=== PATIENT | male | born 1990 | race Caucasian/White ===

== ENCOUNTER 2016-10-24 09:22 | Inpatient (IN) | payer BC, OTHER ==
[~2016-10-24] VITALS: Ht 182.9 cm; Wt 90.7 kg
[2016-10-24] MEDS ORDERED: LORAZEPAM 2 MG/1 ML VIAL IM PRN (19:15)
[2016-10-24] MEDS ORDERED: MAGNESIUM HYDROXIDE 30 ML LIQUID UDC PO PRN (19:15)
[2016-10-24] MEDS ORDERED: MAG HYDROX/AL HYDROX/SIMETH 30 ML LIQUID UDC PO PRN (19:15)
[2016-10-24] MEDS ORDERED: ACETAMINOPHEN 325 MG TABLET PO PRN (19:15)
[2016-10-24] MEDS ORDERED: ONDANSETRON 4 MG/2 ML VIAL IM PRN (19:15)
[2016-10-24] MEDS ORDERED: BUPRENORPHINE HCL 2 MG TAB.SUBL SL PRN (19:15)
[2016-10-24] MEDS ORDERED: MIRALAX 17 GM POWD.PACK PO PRN (19:15)
[2016-10-24] MEDS ORDERED: LOPERAMIDE HCL 2 MG CAPSULE PO PRN ×2 (19:15)
[2016-10-24] MEDS ORDERED: ONDANSETRON ODT 4 MG TAB.RAPDIS SL PRN (19:15)
[2016-10-24] MEDS ORDERED: LORAZEPAM 1 MG TABLET PO PRN ×2 (19:15)
[2016-10-24] MEDS ORDERED: DICYCLOMINE HCL 20 MG TABLET PO PRN (19:15)
[2016-10-24 19:30] LABS: BASOPHILS # (AUTO) 0.2 K/uL (0.0-8.0); BASOPHILS % (AUTO) 3.1 % (0.0-2.0); EOSINOPHILS # (AUTO) 0.2 K/uL (0.0-0.7); EOSINOPHILS % (AUTO) 2.2 % (0.0-7.0); HEMATOCRIT 48.4 % (40-50); HEMOGLOBIN 16.1 G/DL (14.0-18.0); LYMPHOCYTES # (AUTO) 2.1 K/UL (0.8-4.8); LYMPHOCYTES % (AUTO) 25.8 % (20.5-51.5); MEAN CORPUSCULAR HEMOGLOBIN 30.5 UUG (27.0-31.0); MEAN CORPUSCULAR HGB CONC 33 g/dL (32.0-37.0); MEAN CORPUSCULAR VOLUME 91.7 FL (82.0-92.0); MONOCYTES # (AUTO) 0.6 K/UL (0.1-1.30); MONOCYTES % (AUTO) 7.9 % (0.0-11.0); NEUTROPHILS # (AUTO) 4.9 K/UL (1.8-8.9); PLATELET COUNT (AUTO) 186 K/UL (150-450); RED BLOOD CELL COUNT(AUTO) 5.28 MIL/UL (4.7-6.1)
[2016-10-24 19:41] LABS: ALANINE AMINOTRANSFERASE 17 U/L (16-63); ALKALINE PHOSPHATASE 71 U/L (50-136); ASPARTATE AMINOTRANSFERASE 16 U/L (15-37); BILIRUBIN,TOTAL 0.4 mg/dL (0.2-1.0); CARBON DIOXIDE 31 mmol/L (21-32); CHLORIDE 105 mmol/L (98-107); CREATININE 1.3 mg/dL (0.6-1.3); GLUCOSE 79 mg/dL (74-106); MAGNESIUM 1.9 mg/dL (1.8-2.4); POTASSIUM 3.9 mmol/L (3.5-5.1); TOTAL PROTEIN, SERUM 7.9 g/dL (6.4-8.2); UREA NITROGEN, BLOOD 9 mg/dL (7-18)
[2016-10-24 19:42] LABS: *AMPHETAMINE, URINE NEGATIVE (NEGATIVE); *BARBITURATE, URINE NEGATIVE (NEGATIVE); *CANNABINOID, URINE POSITIVE (NEGATIVE); *COCCAINE, URINE POSITIVE (NEGATIVE); *OPIATE, URINE NEGATIVE (NEGATIVE); *PHENCYCLIDINE SCREEN,URINE NEGATIVE (NEGATIVE)
[2016-10-24 19:52] LABS: ETHANOL < 3 MG/DL (0-0)
[2016-10-24 20:00] VITALS: BP 145/90
--- NOTE | 2016-10-24 20:00 | NUR ---
PRE-ADMISSION NOTE: Patient assessed in intake office at 2000 on 10/24/2016. Patient is ambulatory with steady gate, stable, AOx4, speech is soft and clear. Patient states that he is here, in the [facility] "first time for Safety Detox from Xanax, ETOH, MJ and Cocaine". CI=684/90 , HR=80, SpO2=98% with RA, RR=16, unlabored and even, TEMP=98.1. Patient denies Seizures Hx r/t withdrawal from substances. CIWA=3, COWS=3. The patient presented with anxiety,. Patient denies SI/HI. Respirations are even and unlabored. Patient denies SOB and chest pain. Last BM was yesterday. Patient verbalized understanding and agreement. Patient also instructed on policy regarding destruction of any controlled substances/prescriptions brought to facility, and handling of all medications. Patient verbalized understanding and agreement. Will complete admission assessment when patient is brought up to unit.
[2016-10-24] MEDS ORDERED: THIAMINE HCL 200 MG/2 ML VIAL IM ONE (20:30)
--- NOTE | 2016-10-24 21:00 | NUR ---
ADMISSION NOTE : Pt. is 25 year old male admitted for COCAINE, ETOH, XANAX, MARIJUANA Dependence. Pt reported NKA for food or medications, Full Code, Regular Diet, denies history of seizures. Pt is on Fall Precautions. Pt reported no PMH . His Primary care Provider is Dr. Ordoñez , [place], [place]. Upon admission NC=573/90 , HR=80, SpO2=98% with RA, RR=16, unlabored and even, TEMP=98.1. Pt. oriented x4, educated regarding plan of care for the day and medication regimen with understanding. Patient encouraged to attend group therapies/sessions to learn new coping skills to prevent relapse, patient denies SI/HI. Pt denies nausea, vomiting and diarrhea. Last BM was on 10/23/2016.Safety measures in place : bed on lowest position with side rails x2 up for safety, call light within reach. Will continue to monitor closely and offer help SUBSTANCE ABUSE HISTORY : COCAINE 1gm QD snorting since 10/2015 , last use on 10/21/2016 , uses since 2013 MARIJUANA 2gm smokes since 2008, last use on 10/24/2016, Uses since 2006. ETOH BEER 1,500ml x5/week PO last six months, last use 2 days ago, uses since 2012 ETOH WHISKEY 300ml x5/week PO last six months, last use 2 days ago, uses since 2012 XANAX 10mg x2/week PO last 6 months, last use about wekk ago , cant remember exactly when started to use. Pt. smokes 10 cigarettes QD since 2006, last use on 10/24/2016 [place] HISTORY : This detoxication is the first one. PAST MEDICAL HISTORY : Pt. denies any. FAMILY HISTORY : Mother (Breast CA.) Father, 2 brothers, one sister and son are in the good health.
[2016-10-25] VITALS: BP 140/89
--- NOTE | 2016-10-25 | NUR ---
PRN BENADRYL, MOTRIN Pt. complains of sleeplessness and LB pain 12/01. PRN BENADRYL, MOTRIN given as ordered. Safety measures in place : bed on lowest position with side rails x2 up for safety, call light within reach. Will continue to monitor closely and offer help
[2016-10-25] MEDS ORDERED: diphenhydrAMINE 50 MG CAPSULE ONE (00:19)
[2016-10-25] MEDS ORDERED: IBUPROFEN 400 MG TABLET ONE (00:19)
--- NOTE | 2016-10-25 01:00 | NUR ---
REASSESSMENT JNEI PERDOMO Pt. is sleeping, RR=16, unlabored and even. Safety measures in place : bed on lowest position with side rails x2 up for safety, call light within reach. Will continue to monitor closely and offer help
[2016-10-25 04:00] VITALS: BP 108/51
--- NOTE | 2016-10-25 06:34 | NUR ---
END of SHIFT NOTE : Pt. is 25 year old male admitted for COCAINE, ETOH, XANAX, MARIJUANA Dependence on 10/24/2016 at 20:13. Pt reported NKA for food or medications, Full Code, Regular Diet, denies history of seizures. Pt is on Fall Precautions. Pt reported no PMH . Patient encouraged to attend group therapies/sessions to learn new coping skills to prevent relapse, patient denies SI/HI. Pt remains compliant with the treatment plan. PRN BENADRYL, MOTRIN given during my shift. V/S remain WNL. RR=16, even and unlabored, lungs clear upon auscultation, abdomen soft and non- distended. Pt denies nausea, vomiting and diarrhea. LAST CIWA=3 ,COWS=3 at 0400 , OBGUZS=341 ml, voided x2 , slept 6 hours. Safety measures in place : bed on lowest position with side rails x2 up for safety, call light within reach. Will continue to monitor closely and offer help.
--- NOTE | 2016-10-25 07:00 | NUR ---
Start of Shift Notes: Received patient in his room. Alert and oriented x 4. Verbally responsive. Able to make needs known. Respirations even and unlabored. No SOB noted. Skin warm and dry to touch. Skin is intact. Abdomen soft and non-distended. BS (+) in all 4 quadrants. No complains of N/V/D or constipation noted. No complains of abdominal discomfort noted. Voids independently. Ambulatory ad july with steady gait. Patient is a 25 year old male admitted for cocaine, marijuana, ETOH and BZO dependence who was placed on PRNs at this time. Denies any past medical hx. NKA. FULL CODE. Regular diet. On fall and seizure precaution. Educated patient on his current plan of care for the day and his medication regimen. On fall and seizure precaution. Encouraged oral fluid intake and encouraged group participation to learn new skills to prevent relapse. Will continue to monitor closely.
[2016-10-25 08:00] VITALS: BP 91/50
[2016-10-25] MEDS: THIAMINE HCL 100 MG TABLET PO SCH (08:20)
[2016-10-25] MEDS: MULTIVITAMINS,THERAPEUTIC TABLET PO SCH (08:20)
[2016-10-25] MEDS: FOLIC ACID 1 MG TABLET PO SCH (08:20)
[2016-10-25] MEDS: METHOCARBAMOL 750 MG TABLET PO PRN (08:20)
--- NOTE | 2016-10-25 08:20 | NUR ---
Robaxin 750mg PO given: Patient noted with complain of muscle aches and pains 6/10 related to withdrawal symptoms. Non-pharmacological interventions were ineffective. Medicated patient with Robaxin 750mg PO as ordered. Will monitor for effectiveness.
[2016-10-25] MEDS ORDERED: TUBERCULIN,PURIF.PROT.DERIV. 5 TU/0.1 ML TEST ID ONE (09:00)
--- NOTE | 2016-10-25 09:20 | NUR ---
Re-assessment: Per patient, PRN Robaxin was effective in reducing generalized muscle aches and pains. PL 2.
[2016-10-25 12:00] VITALS: BP 138/86
[2016-10-25] MEDS: LORAZEPAM 1 MG TABLET PO SCH ×3 (12:54→22:09)
[2016-10-25] MEDS: IBUPROFEN 600 MG TABLET PO PRN (14:36)
--- NOTE | 2016-10-25 14:36 | NUR ---
Motrin 600 mg PO given: Patient noted with complain of 7/10 back pain. Unable to be relieved with non-pharmacological intervention. Medicated patient with Motrin 600 mg PO as ordered. Will monitor for effectiveness.
--- NOTE | 2016-10-25 15:36 | NUR ---
Re-assessment: Per patient, PRN Motrin was effective in reducing patient's back pain. PL 2.
[2016-10-25 16:00] VITALS: BP 132/87
--- NOTE | 2016-10-25 18:30 | NUR ---
End of Shift Notes: Patient is a 25 year old male admitted for cocaine, marijuana, BZO and ETOH dependence who was placed on a 3-day Ativan taper as ordered. Initiated taper today. No delayed reactions noted. Denies any past medical hx. Prior to admission, patient was using 1 gram of cocaine, 2 grams of marijuana, 1.5L of beer, 300cc of whiskey and 10 mg of Xanax. VS monitored closely q 4 hours. No significant abnormalities noted. Withdrawal symptoms were closely monitored. Initial CIWA 3. Patient presented with fine tremors, anxiety, sweats and mild agitation. Per patient, Ativan has been helping him with his withdrawal symptoms AEB last CIWA 4. Medicated patient with Robaxin 750mg PO at 0800 for generalized muscle aches with help after 1 hour and Motrin 600 mg PO at 1436 for back pain with help after 1 hour. Patient was able to participate in group and therapy sessions due to his withdrawal symptoms. Compliant with care and treatment. TB test administered to left forearm. No s/s of bleeding noted. All needs met and attended. Will continue to monitor closely.
--- NOTE | 2016-10-25 19:15 | NUR ---
START OF SHIFT NOTE : IMAN Pt. is 25 year old male admitted for COCAINE, ETOH, XANAX, MARIJUANA Dependence on 10/24/2016 at 20:13. Pt reported NKA for food or medications, Full Code, Regular Diet, denies history of seizures. Pt is on Fall Precautions. He placed on 3 days ATIVAN taper, started on 10/25/2016. Patient encouraged to attend group therapies/sessions to learn new coping skills to prevent relapse, patient denies SI/HI. Pt remains compliant with the treatment plan. V/S remain WNL. RR=16, even and unlabored, lungs clear upon auscultation, abdomen soft and non- distended. Pt denies nausea, vomiting and diarrhea. Safety measures in place : bed on lowest position with side rails x2 up for safety, call light within reach. Will continue to monitor closely and offer help.
--- NOTE | 2016-10-25 19:15 | NUR ---
START OF SHIFT NOTE : Pt. is 24 y/o female new admission here for Etoh r/t Wine 1500mL/d for 7months; 3 day Ativan taper ordered on 10/24/2016. Pt is a full code, regular ,diet, NKA fall & seizure precautions ordered. Hhx: smoker, depression, anxiety, eating d/o, first time doing detox. Features symmetrical, PERRLA 3mm, no dizziness noted. Pt denies chest pain, no SOB during my shift. No N/V/D. Pt denies dysuria. Skin is intact. No hallucinations, delusions or suicidal ideations noted. Pt is excused from group therapy and activities since she has been getting the IVF infusion. KCl- 40mEq IVF at 100cc/H for hydration and to obtain Dr. Rand goal of K+ level at 40 so started a # 22g on Right FA with KCl- 40mEq NS 0.9% running at 100cc/h. Safety measures in place : bed on lowest position with side rails x2 up for safety, call light within reach. Will continue to monitor closely and offer help. Addendum: 10/25/16 at 2240 by MINI ENG RN WRONG ENTRY, SEE NEXT ONE.
[2016-10-25 20:00] VITALS: BP 141/90
--- NOTE | 2016-10-25 22:00 | NUR ---
PRN BENADRIL, CLONIDINE Pt. complains of sleeplessness, flashes. PRN BENADRIL, CLONIDINE given as ordered. Safety measures in place : bed on lowest position with side rails x2 up for safety, call light within reach. Will continue to monitor closely and offer help
[2016-10-25] MEDS: diphenhydrAMINE 50 MG CAPSULE PO PRN (22:03)
[2016-10-25] MEDS: CLONIDINE HCL 0.1 MG TABLET PO PRN (22:09)
--- NOTE | 2016-10-25 23:00 | NUR ---
REASSESSMENT BENADRYL, CLONIDINE Pt. is sleeping, RR=16, unlabored and even. Safety measures in place : bed on lowest position with side rails x2 up for safety, call light within reach. Will continue to monitor closely and offer help
--- NOTE | 2016-10-26 01:52 | NUR ---
RE-ASSESSMENT Patient is sleeping. RR: 15. Respirations even and unlabored. PRN Benadryl PO and PRN Tylenol PO were effective. All needs met. Safety measures on place. Call light within reach, bed in lowest position and locked, padded rails up bilaterally rails up bilaterally. Will continue to monitor closely.
--- NOTE | 2016-10-26 06:44 | NUR ---
END OF SHIFT NOTE : Pt. is 25 year old male admitted for COCAINE, ETOH, XANAX, MARIJUANA Dependence on 10/24/2016 at 20:13. Pt reported NKA for food or medications, Full Code, Regular Diet, denies history of seizures. Pt is on Fall Precautions. He placed on 3 days ATIVAN taper, started on 10/25/2016. Patient encouraged to attend group therapies/sessions to learn new coping skills to prevent relapse, patient denies SI/HI. Pt remains compliant with the treatment plan. V/S remain WNL. RR=16, even and unlabored, lungs clear upon auscultation, abdomen soft and non- distended. Pt denies nausea, vomiting and diarrhea. Pt remains compliant with the treatment plan. No PRNs were given during my shift. V/S remain WNL. RR=16, even and unlabored, lungs clear upon auscultation, abdomen soft and non- distended. Pt denies nausea, vomiting and diarrhea. LAST CIWA= 3 at 0400 , MBBSFT=4105 ml, voided x2 , slept 5 hours. Safety measures in place : bed on lowest position with side rails x2 up for safety, call light within reach. Will continue to monitor closely and offer help.
--- NOTE | 2016-10-26 07:55 | NUR ---
START OF SHIFT Pt 25 y/o male admitted for etoh cocaine, xanax dependence. Pt received in room with eyes closed resting, but easily arousable to name. Pt alert and oriented to name, place, and time. Perrla. Skin warm and slightly moist to touch. Respirations even and unlabored. It was reported that pt slept for 5 hours sleep last night. Bed on lowest position with side rails x2 up for safety. Call light within reach. No distress noted at this time.
[2016-10-26 08:00] VITALS: BP 89/46
[2016-10-26 08:45] VITALS: BP 116/66
[2016-10-26] MEDS: MULTIVITAMINS,THERAPEUTIC TABLET PO SCH (08:58)
[2016-10-26] MEDS: METHOCARBAMOL 750 MG TABLET PO PRN ×2 (08:58→18:43)
[2016-10-26] MEDS: THIAMINE HCL 100 MG TABLET PO SCH (08:58)
[2016-10-26] MEDS: FOLIC ACID 1 MG TABLET PO SCH (08:58)
[2016-10-26] MEDS: LORAZEPAM 1 MG TABLET PO SCH ×3 (08:59→20:34)
--- NOTE | 2016-10-26 09:05 | NUR ---
PRN Pt states did not have a BM yesterday and this morning. Mom po prn per MD order given and tolerated well.
--- NOTE | 2016-10-26 09:05 | NUR ---
PRN Pt with c/o back aches 10/31. Robaxin po prn per MD order given and tolerated well .
--- NOTE | 2016-10-26 10:05 | NUR ---
PRN SHORTY Pt observed walking around the unit. No distress noted at this time.
--- NOTE | 2016-10-26 10:05 | NUR ---
MIRIAM ORO Pt still with no BM. MD aware with new order for colace per MD order and for first dose to start today at 1300.
[2016-10-26] MEDS: DOCUSATE SODIUM 250 MG CAPSULE PO SCH (12:24)
[2016-10-26] MEDS: CLONIDINE HCL 0.1 MG TABLET PO PRN (12:24)
--- NOTE | 2016-10-26 12:36 | NUR ---
PRN Pt with bp =153/102. Catapres po prn per MD order given and tolerated well.
[2016-10-26 12:41] VITALS: BP 153/102
--- NOTE | 2016-10-26 13:36 | NUR ---
PRN EVAL Pt with WQ=608/54.
--- NOTE | 2016-10-26 13:39 | NUR ---
BM Pt states has had a BM.
[2016-10-26 17:42] VITALS: BP 110/48
--- NOTE | 2016-10-26 18:10 | NUR ---
END OF SHIFT Pt 25 y/o male admitted for etoh , cocaine, xanax dependence. Pt alert and oriented to name, place, and time. Perrla. Skin warm and slightly moist to touch. Respirations even and unlabored. Pt observed mostly in room today, but did attend group activity. Pt medication compliant and tolerated well. No ASE noted. Pt was seen by MD today. Bed on lowest position with side rails x2up for safety. Call light within reach. No distress noted at this time.
--- NOTE | 2016-10-26 18:45 | NUR ---
START OF SHIFT NOTE: Patient endorsed by day shift nurse. Report received. Patient is a 25 year old male admitted to [facility] on 10/24/2016 for Benzodiazepines, ETOH, cocaine and tobacco dependence, started ordered 3 day Ativan taper since 10/25/2016, which tolerated well without ASE. Patient remains compliant with treatment, medications, and diet regime. Patient reports NKA, is on Regular diet, is on Full Code, is on Fall and Seizures Precautions. Patient reports PMH: Anxiety, Depression, Substance dependence, tobacco dependence. Patient reports that he is "first time has detox". Upon endorsement, patient is in his room alert and oriented x4, ambulatory with stable gait, cooperative. CIWA 4. Patient presented with anxiety barely sweating. VSWNL. Respirations even and unlabored. Lung Sounds are clear bilaterally. Patient denies SOB and chest pain. Heart rate regular. Bowel Sounds active in all 4 quadrants. Last BM was today, on 10/26/16 at 1100. Skin is intact, warm and dry to touch. Encouraged to fluids intake as tolerated. Patient attended groups activities. All needs met. Safety measures in the place. Call light within reach, bed in the lowest position and locked, padded rails up bilaterally. Will continue to monitor closely.
--- NOTE | 2016-10-26 18:46 | NUR ---
PRN Pt states has back aches 10/31. Robaxin po prn per MD order given and tolerated well.
--- NOTE | 2016-10-26 18:46 | NUR ---
START OF SHIFT NOTE: Patient endorsed by day shift nurse. Report received. Patient is a 43 year old male admitted to [facility] on 10/22/2016 for Benzodiazepines, ETOH, opioid dependence, started ordered 5 day Ativan and 5 day Subutex taper since 10/23/2016, which tolerated well without ASE. Patient remains compliant with treatment, medications, and diet regime. Patient reports NKA, is on Regular diet, is on Full Code, is on Fall and Seizures Precautions. Patient reports PMH: Anxiety, Depression, Bipolar disorder, Seizure episode "6 months ago" as patient reported, ADD, Hepatitis C, Appendectomy(2008), Degenerative disc bulging - L3 disc. Patient reports Substance use history: Oxycodone IV: " 120 mg intermittently during few days. Last used 120 mg on 10/16/2016". Hydrocodone PO: " 100-120 mg daily during few days. Last used 100 mg on 10/22/2016". ETOH PO: "Vodka 1liter intermittently during few days. Last used 1 liter on 10/22/19". Valium PO: "40 mg every day during few days . Last used 40 mg on 10/21/2016". Patient reports treatment history:"[address]" in 2012 for 2 weeks, and in 2013 for 7 days. "[place]" in 2016 for 3 days. Upon endorsement, patient is in his room alert and oriented x4, ambulatory with stable gait, cooperative. CIWA 3. Patient presented with anxiety and barely sweating. VSWNL. Respirations even and unlabored. Lung Sounds are clear bilaterally. Patient denies SOB and chest pain. Heart rate regular. Bowel Sounds active in all 4 quadrants. Last BM was today, on 10/26/16 at 1600. Skin is intact, warm and dry to touch. Encouraged to fluids intake as tolerated. Patient attended groups activities. All needs met. Safety measures in the place. Call light within reach, bed in the lowest position and locked, padded rails up bilaterally. Will continue to monitor closely. Addendum: 10/26/16 at 1958 by SOCORRO PATTON RN wrong patient
--- NOTE | 2016-10-26 19:46 | NUR ---
RE-ASSESSMENT Patient reports that Robaxin was effective. Jis pain level now decreased from "7/10 to 2/10". All needs met. Safety measures in the place. Call light within reach, bed in the lowest position and locked, padded rails up bilaterally. Will continue to monitor closely.
[2016-10-26 20:00] VITALS: BP 147/94
[2016-10-26] MEDS: CLONIDINE HCL 0.1 MG TABLET PO SCH (20:34)
[2016-10-27] VITALS: BP 128/84
[2016-10-27] MEDS: diphenhydrAMINE 50 MG CAPSULE PO PRN ×2 (00:52→23:54)
--- NOTE | 2016-10-27 00:52 | NUR ---
PRN BENADRYL 50 MG 1 CAPS PO AND PRN TYLENOL 65O MG 2 TABS PO ADMINISTRATION Patient c/o insomnia and low back pain "8". Patient was assessed. VSWNL. PRN Benadryl 50 mg 1 caps PO and PRN Tylenol 650 mg 2 tabs PO administrated as ordered with full glass of water. All needs met. Safety measures in the place. Call light within reach, bed in the lowest position and locked, padded rails up bilaterally. Will continue to monitor closely.
--- NOTE | 2016-10-27 01:52 | NUR ---
RE-ASSESSMENT Patient is sleeping. RR: 14. Respirations even and unlabored. PRN Benadryl PO and PRN Tylenol PO were effective. All needs met. Safety measures on place. Call light within reach, bed in lowest position and locked, padded rails up bilaterally rails up bilaterally. Will continue to monitor closely.
[2016-10-27 04:00] VITALS: BP 102/65
[2016-10-27 06:08] LABS: HEPATITIS B SURFACE AG Negative (Negative)
--- NOTE | 2016-10-27 07:13 | NUR ---
END OF SHIFT NOTE: Patient endorsed to day shift nurse in stable condition. Report given. Patient is a 25 year old male admitted to [facility] on 10/24/2016 for Benzodiazepines, ETOH, cocaine and tobacco dependence, continue ordered 3 day Ativan taper since 10/25/2016, which tolerated well without ASE. Patient remains compliant with treatment, medications, and diet regime. Patient reports NKA, is on Regular diet, is on Full Code, is on Fall and Seizures Precautions. Patient reports PMH: Anxiety, Depression, Substance dependence, tobacco dependence. Upon last assessment at 0400: CIWA 4. Patient presented with anxiety, agitation, nervousness, and barely sweating. Patient denies SI/HI. VSWNL. Respirations even and unlabored. Patient denies SOB and chest pain. Heart rate regular. Skin is intact, warm and dry to touch. Encouraged to fluids intake as tolerated. Patient attended groups activities. PRN Benadryl PO for insomnia and PRN Tylenol PO for low back pain were effective. Patient slept 4 hours, intake 1,650 ml, voided x3, stool x1. All needs met. Safety measures in the place. Call light within reach, bed in the lowest position and locked, padded rails up bilaterally.
--- NOTE | 2016-10-27 07:59 | NUR ---
START OF SHIFT Pt 25 y/o male admitted for etoh cocaine, xanax dependence. Pt received in room with eyes closed resting, but easily arousable to name. Perrla. Pt alert and oriented to name, place, and time. Skin warm and dry to touch. Respirations even and unlabored. It was reported that pt slept for 4 hours sleep last night. Bed on lowest position with side rails x2 up for safety. Call light within reach. No distress noted at this time.
[2016-10-27 08:35] VITALS: BP 100/53
[2016-10-27] MEDS: MULTIVITAMINS,THERAPEUTIC TABLET PO SCH (08:48)
[2016-10-27] MEDS: DOCUSATE SODIUM 250 MG CAPSULE PO SCH (08:48)
[2016-10-27] MEDS: CLONIDINE HCL 0.1 MG TABLET PO SCH ×2 (08:49→21:41)
[2016-10-27] MEDS: FOLIC ACID 1 MG TABLET PO SCH (08:49)
[2016-10-27] MEDS: THIAMINE HCL 100 MG TABLET PO SCH (08:49)
[2016-10-27] MEDS: LORAZEPAM 1 MG TABLET PO SCH ×2 (08:49→21:41)
[2016-10-27] MEDS: METHOCARBAMOL 750 MG TABLET PO PRN ×2 (08:55→23:54)
--- NOTE | 2016-10-27 08:55 | NUR ---
PRN Pt with c/o pain back pain 7/10 aches. Robaxin po prn per MD order given and tolerated well.
--- NOTE | 2016-10-27 09:55 | NUR ---
PRN EVAL Pt states medication was effective 3/10 pain level.
[2016-10-27 12:39] VITALS: BP 146/87
[2016-10-27] MEDS: IBUPROFEN 600 MG TABLET PO PRN (14:44)
[2016-10-27] MEDS: LIDOCAINE 5% PATCH TD SCH (14:44)
--- NOTE | 2016-10-27 14:44 | NUR ---
PRN Pt states has back pain aches /10. Motrin po prn per MD order given and tolerated well.
--- NOTE | 2016-10-27 15:04 | NUR ---
Therapist prompted client about group times. Client stated he will be going.
--- NOTE | 2016-10-27 15:44 | NUR ---
PRN SHORTY Pt states pain 07/01.
[2016-10-27 16:49] VITALS: BP 142/89
--- NOTE | 2016-10-27 17:14 | NUR ---
END OF SHIFT Pt 25 y/o male admitted for etoh , cocaine, xanax dependence. Pt alert and oriented to name, place, and time. Perrla. Skin warm and slightly moist to touch. Respirations even and unlabored. Pt observed mostly in room today, but did attend group activity. Pt medication compliant and tolerated well. No ASE noted. Pt was seen by MD today. Bed on lowest position with side rails x2up for safety. Call light within reach. No distress noted at this time. Addendum: 10/27/16 at 1838 by YUNIER DAVIS RN incorrect time
[2016-10-27 20:00] VITALS: BP 126/79
--- NOTE | 2016-10-27 20:11 | NUR ---
START OF SHIFT NOTE Pt is a 25 y/o male admitted for Cocaine, Marijuana, ETOH, and Xanax dependence and use. Pt has NKA but reported a PMH of anxiety and dependence. Per day shift nurse pt was placed on a 3 day Ativan taper and is tolerating medication well , with no s/e or a/r reported. Pt received Robaxin, Motrin, and a Lidocaine patch during the day shift. Last CIWA: 2 (1600). At this time pt is seemingly happy and relaxed aeb singing and laughing. Pt skin is dry and intact. Breathing is even and unlabored. MARIA ISABEL noted. Pt stated "Im having a little back pain. Probably like a 4/10, but I don't want to take anything until around 11. That's when I start getting ready for bed. Ill be okay till then." Pt was encouraged to notify staff of any changes in condition or of any concerns. Pt verbalized an understanding. Will continue to monitor. Addendum: 10/28/16 at 0632 by BEVERLY COPELAND LVN PMH of anxiety and depression
--- NOTE | 2016-10-27 23:54 | NUR ---
ROBAXIN AND BENADRYL PRN ADMINISTRATION Pt stated " Can I have that Robaxin now, and some Benadryl to help me sleep? My pain is still about a 4/10. " Robaxin 750 mg PO PRN and Benadryl 50 mg PO PRN was given. Pt was encouraged to notify staff of any changes in condition or of any concerns. Pt verbalized an understanding. All safety measures in place. Will monitor for effectiveness.
[2016-10-28] VITALS: BP 131/83
--- NOTE | 2016-10-28 00:54 | NUR ---
LEON AND LEANNE PRN REASSESSMENT Pt stated " I feel much better. It's not even a 2/10 right now. I'm headed to bed now." PRNS effective. All safety measures in place. Will continue to monitor.
--- NOTE | 2016-10-28 04:00 | NUR ---
VITALS REFUSED/CIWA DEFERRED Pt refused to have vitals taken at this time. Pt was encouraged x 3 with risks and benefits explained, but the pt still refused. Pt is asleep in bed with no signs of discomfort/distress noted. CIWA assessment deferred until pt is awake. All safety measures in place. Will continue to monitor. Addendum: 10/28/16 at 0622 by BEVERLY COPELAND LVN Amended: Links added.
--- NOTE | 2016-10-28 07:30 | NUR ---
END OF SHIFT NOTE Pt is a 25 y/o male admitted for Cocaine, Marijuana, ETOH, and Xanax dependence and use. Pt has NKA but reported a PMH of anxiety and depression. Pt was continues on a 3 day Ativan taper and is tolerating medication well , with no s/e or a/r reported. Pt received Robaxin 750 mg PO PRN and Benadryl patch during the shift. Last CIWA: 0 (0000). Pt slept for a total of 6 hours. All safety measures in place. Will endorse to the oncoming nurse. Addendum: 10/29/16 at 0722 by BEVERLY COPELAND LVN Benadryl 50 mg PO PRN not a Benadryl patch.
[2016-10-28 08:00] VITALS: BP 136/83
[2016-10-28] MEDS: MULTIVITAMINS,THERAPEUTIC TABLET PO SCH (08:52)
[2016-10-28] MEDS: THIAMINE HCL 100 MG TABLET PO SCH (08:52)
[2016-10-28] MEDS: CLONIDINE HCL 0.1 MG TABLET PO SCH ×2 (08:53→21:11)
[2016-10-28] MEDS: DOCUSATE SODIUM 250 MG CAPSULE PO SCH (08:53)
[2016-10-28] MEDS: FOLIC ACID 1 MG TABLET PO SCH (08:53)
[2016-10-28] MEDS: LIDOCAINE 5% PATCH TD SCH (08:54)
[2016-10-28] MEDS ORDERED: LORAZEPAM 1 MG TABLET PO SCH (09:00)
--- NOTE | 2016-10-28 09:00 | NUR ---
START OF SHIFT Received report from restaurant shift leader nurse. Patient is 25 year old male admitted for medically supervised withdrawal from alcohol. Patient is full code with NKA. On assessment this AM: CIWA: 1. Denies SOB, chest pain. Vitals signs WNL. Reports mild anxiety. Med compliant with AM meds. Patient was encouraged to attend group meetings today. Will continue to monitor patient.
[2016-10-28] MEDS ORDERED: BACLOFEN 20 MG TABLET PO PRN (11:30)
[2016-10-28 12:00] VITALS: BP 142/81
[2016-10-28] MEDS ORDERED: IBUP-1955 PO (12:18)
[2016-10-28] MEDS ORDERED: LIDO30AD10 TD (12:18)
[2016-10-28] MEDS ORDERED: BACL20TA PO (12:18)
[2016-10-28] MEDS ORDERED: DOCU250C14 PO (12:18)
[2016-10-28] MEDS ORDERED: CLON0.1T14 PO (12:18)
[2016-10-28] MEDS ORDERED: DIPH50CA37 PO (12:18)
[2016-10-28 12:49] LABS: *AMPHETAMINE, URINE NEGATIVE (NEGATIVE); *BARBITURATE, URINE NEGATIVE (NEGATIVE); *CANNABINOID, URINE POSITIVE (NEGATIVE); *COCCAINE, URINE NEGATIVE (NEGATIVE); *OPIATE, URINE NEGATIVE (NEGATIVE); *PHENCYCLIDINE SCREEN,URINE NEGATIVE (NEGATIVE)
--- NOTE | 2016-10-28 13:05 | NUR ---
Therapist prompted client about group times. Client stated he would be at all groups today.
[2016-10-28 16:00] VITALS: BP 129/56
--- NOTE | 2016-10-28 17:22 | NUR ---
PRN BACLOFEN Patient complains of back pain 10/31, PRN baclofen given. Will continue to monitor patient.
--- NOTE | 2016-10-28 18:22 | NUR ---
REASSESSMENT PRN BACLOFEN Patient reports pain decreased to 4/10.
--- NOTE | 2016-10-28 18:38 | NUR ---
END OF SHIFT Patient is 25 year old male admitted for medically supervised withdrawal from alcohol. Patient is full code with NKA.Most recent CIWA: 1. Patient reports mild anxiety and increasing back pain, 10/31. PRN baclofen given. Compliant with routine meds during this shift. Patient tolerating meals without n/v. night clerk auditornight clerk auditor will continue to monitor patient.
[2016-10-28 20:00] VITALS: BP 131/89
--- NOTE | 2016-10-28 20:00 | NUR ---
START OF SHIFT NOTE Pt is a 25 y/o male admitted for Cocaine, Marijuana, ETOH, and Xanax dependence and use. Pt has NKA but reported a PMH of anxiety and depression. Per day shift nurse pt completed taper and is scheduled for discharge tomorrow. Pt received Baclofen 20 mg PO PRN during the day shift. Last CIWA: 1 (1600). At this time pt has just returned to his room from a meeting. Pt skin is dry and intact. Breathing is even and unlabored. MARIA ISABEL noted. Pt stated " Today was good. I'm leaving tomorrow." Pt denies any pain/discomfort at this time. Pt was encouraged to notify staff of any changes in condition or of any concerns. Pt verbalized an understanding. Will continue to monitor.
[2016-10-28] MEDS: METHOCARBAMOL 750 MG TABLET PO PRN (23:14)
[2016-10-28] MEDS: diphenhydrAMINE 50 MG CAPSULE PO PRN (23:14)
--- NOTE | 2016-10-28 23:14 | NUR ---
ROBAXIN AND BENADRYL PRN ADMINISTRATION Pt reported having back pain 5/10 and the inability to fall asleep. Benadryl 50 mg PO PRN and Robaxin 750 mg PO PRN was given. Pt was encouraged to notify staff of any changes in condition or of any concerns. Pt verbalized an understanding. All safety measures in place. Will monitor for effectiveness.
--- NOTE | 2016-10-29 | NUR ---
VITALS REFUSED/CIWA ASSESSMENT DEFERRED Pt refused to have vitals taken at this time. Pt was encouraged x 3 with risks and benefits explained, but the pt still declined. CIWA assessment deferred until pt is awake. All safety measures in place. Will continue to monitor. Addendum: 10/29/16 at 0033 by BEVERLY COPELAND LVN Amended: Links added.
--- NOTE | 2016-10-29 00:14 | NUR ---
ROBAXIN AND BENADRYL PRN REASSESSMENT Pt is asleep in bed with no signs of discomfort/distress noted. Breathing is even an unlabored. Respirations 14 breaths per minute. PRN Benadryl effective. Robaxin PRN reassessment deferred until pt is awake. All safety measures in place. Will continue to monitor.
--- NOTE | 2016-10-29 04:00 | NUR ---
VITALS REFUSED/CIWA DEFERRED Pt refused to have vitals taken at this time. Pt was encouraged x 3 with risks and benefits explained, but the pt still declined. CIWA assessment deferred until pt is awake. All safety measures in place. Will continue to monitor. Addendum: 10/29/16 at 0509 by BEVERLY COPELAND LVN Amended: Links added.
--- NOTE | 2016-10-29 07:19 | NUR ---
END OF SHIFT NOTE Pt is a 25 y/o male admitted for Cocaine, Marijuana, ETOH, and Xanax dependence and use. Pt has NKA but reported a PMH of anxiety and depression. Pt was completed taper and is scheduled for discharge today. Pt received Robaxin 750 mg PO PRN and Benadryl 50 mg PO PRN during the shift. Last CIWA: 1 (1999). Pt slept for a total of 6 hours. All safety measures in place. Will endorse to the oncoming nurse.
[2016-10-29 08:00] VITALS: BP 107/64
--- NOTE | 2016-10-29 08:05 | NUR ---
START OF SHIFT: RECEIVED PT A/O X 4. ATIVAN TAPER COMPLETED. DISCHARGE PLANNING IN PROGRESS FOR LATER THIS AM. HE DENIES S/S OF W/D AT THIS TIME AND VERBALIZES MOTIVATION AND ENTHUSIASM FOR RECOVERY. CIWA 0 WILL MONITOR AND OFFER SUPPORT.
[2016-10-29] MEDS: THIAMINE HCL 100 MG TABLET PO SCH (08:44)
[2016-10-29] MEDS: FOLIC ACID 1 MG TABLET PO SCH (08:44)
[2016-10-29] MEDS: MULTIVITAMINS,THERAPEUTIC TABLET PO SCH (08:44)
[2016-10-29] MEDS: DOCUSATE SODIUM 250 MG CAPSULE PO SCH (08:45)
[2016-10-29] MEDS: LIDOCAINE 5% PATCH TD SCH (08:45)
[2016-10-29] MEDS: CLONIDINE HCL 0.1 MG TABLET PO SCH (08:47)
--- NOTE | 2016-10-29 11:40 | NUR ---
DISCHARGE: PT IS A/O X 4. HE DENIES S/I AND H/I. BELONGINGS RETURNED. EDUCATED PT ON DISCHARGE INSTRUCTIONS AND MEDICATIONS. PT EXPRESSED VERBAL UNDERSTANDING OF EDUCATION. TAX PROCESSOR ESCORTED PT TO [facility] WHERE HE WAS TRANSPORTED TO [facility] BY [facility] AT [address]
== END 2016-10-29 11:30 | disposition other institution (70) | DRG 895 ==
LOC: SRC 18:23
PROVIDERS: ADMIT Internal Medicine; ATTEND Internal Medicine
PROC: HZ2ZZZZ Detoxification Services for Substance Abuse Treatment (ICD-10-PCS; principal; 2016-10-24)
PROC: HZ41ZZZ Group Counseling for Substance Abuse Treatment, Behavioral (ICD-10-PCS; 2016-10-25)
DX: F10.230 Alcohol dependence with withdrawal, uncomplicated (principal); F14.20 Cocaine dependence, uncomplicated; F13.10 Sedative, hypnotic or anxiolytic abuse, uncomplicated; Y90.9 Presence of alcohol in blood, level not specified; F12.10 Cannabis abuse, uncomplicated; Z82.49 Family history of ischemic heart disease and other diseases of the circulatory system; Z80.3 Family history of malignant neoplasm of breast; Z81.1 Family history of alcohol abuse and dependence; F17.210 Nicotine dependence, cigarettes, uncomplicated; M54.5 Low back pain; I15.9 Secondary hypertension, unspecified; K59.00 Constipation, unspecified
CPT/HCPCS: 36415; 70030-TC; 80307; 80349; 80353; 83735; 85025; 86580; 86592; 86705; 86803; 87340; 87806; G0480; J3411; Q0163